=== PATIENT | male | born 2000 | race Caucasian/White ===

== ENCOUNTER 2018-03-18 04:23 | Emergency (ER) | payer OTHER ==
[~2018-03-18] VITALS: Ht 180.3 cm; Wt 70.3 kg
[2018-03-18 04:23] VITALS: BP_SYST 140
[2018-03-18 04:40] VITALS: BP_SYST 140
== END 2018-03-18 04:40 ==
LOC: SED 04:23
DX: Z04.1 Encounter for examination and observation following transport accident (principal); F10.129 Alcohol abuse with intoxication, unspecified; V43.52XA Car driver injured in collision with other type car in traffic accident, initial encounter; Y93.89 Activity, other specified; Y92.410 Unspecified street and highway as the place of occurrence of the external cause; Y99.8 Other external cause status
CPT/HCPCS: 99283